=== PATIENT | male | born 1965 | race Caucasian/White ===

== ENCOUNTER → 2017-11-24 | Outpatient (CLI) | payer BC ==
--- NOTE | 2017-11-24 10:25 | DIAGNOSTIC IMAGING REPORT ---
R UPPER EXT JOINT WITHOUT CLINICAL HISTORY: 52 years-old Male with RIGHT SHOULDER PAIN. Acute right shoulder pain without reported trauma COMPARISON: Right shoulder radiographs 08/26/2017. TECHNIQUE: Multiplanar, multi sequence MRI of the right shoulder was performed without intravenous contrast. FINDINGS: ROTATOR CUFF: There is low-grade partial-thickness interstitial tearing of the myotendinous junction and proximal fibers of the supraspinatus tendon with moderate associated edema, nicely seen on images 8 through 10 of series 9 and image 9 series 6. No full-thickness tear or tendon retraction identified. Mild supraspinatus tendinosis. Mild tendinosis of the infraspinatus tendon with without high-grade partial or full-thickness tear identified. There may be some low-grade partial-thickness articular sided tearing of the posterior insertional fibers infraspinatus tendon measuring approximately 5 x 4 mm. The teres minor and subscapularis tendons appear intact. No muscle atrophy. BICEPS TENDON: The long-head biceps tendon is intact. No evidence of tendinosis. The biceps rod and anchor are intact. LABRUM: Multifocal fraying of the labrum with linear defect of the inferior labrum suggesting labral tear. No significant surrounding edema to suggest acute injury. There is no evidence for a paralabral cyst. GLENOHUMERAL JOINT: Mild joint space narrowing with marginal spurring and chondral thinning of the glenohumeral joint. There is no large glenohumeral joint effusion. There is no loose body or debris present within the glenohumeral joint. ACROMIOCLAVICULAR JOINT: Moderate degenerative changes about the AC joint with joint space narrowing, marginal spurring and capsular atrophy with subchondral cystic changes/edema. These changes cause mild mass effect upon the adjacent supraspinatus tendon. Subcoracoid interval is mildly narrowed at 6 mm. No evidence of os acromiale. Trace subacromial/subdeltoid bursitis. OUTLET SPACES: The suprascapular notch and quadrilateral space are without obstructing or space occupying lesions. BONE MARROW: Subcortical cystic changes of the posterior facet greater tuberosity. No fracture or marrow replacing process. SOFT TISSUES: The periarticular soft tissues are unremarkable. IMPRESSION: 1. Low-grade partial-thickness interstitial tearing of the myotendinous junction and proximal fibers of the supraspinatus tendon with moderate associated reactive edema suggesting acute injury. No full-thickness tear or tendon retraction identified. 2. Mild tendinosis of the supraspinatus and infraspinatus tendons. Small low-grade partial-thickness articular sided tear of the posterior insertional fibers infraspinatus tendon. 3. Moderate acromioclavicular and mild glenohumeral degenerative changes with trace subacromial/subdeltoid bursitis. The above report was generated using voice recognition software. It may contain grammatical, syntax or spelling errors. Electronically signed by: Matthew Mcdermott M.D. 11/24/2017 10:24 AM Dictated Date/Time: 11/24/2017 10:10 AM
== END | disposition home or self-care (01) ==
LOC: C.MRIBC 09:14
PROVIDERS: ATTEND Orthopaedic Surgery
DX: M75.101 Unspecified rotator cuff tear or rupture of right shoulder, not specified as traumatic (principal); M19.011 Primary osteoarthritis, right shoulder